=== PATIENT | male | born 1985 | race Caucasian/White ===

== ENCOUNTER 2016-10-04 15:25 | Emergency (ER) | payer SELFPAY ==
--- NOTE | 2016-10-05 12:42 | ER ---
ADMIT: 10/04/2016 RM/LOC: ER [facility] MR#: [id number] [address] [id number] [place] [address] [facility] [address] [place] [address] Emergency Room Report SEX: M AGE: 30 : 1985 DATE: 10/04/2016 CHIEF COMPLAINT: Shortness of breath. HISTORY OF PRESENT ILLNESS: Pleasant 30-year-old white male, who presents to the ER for shortness of breath. The patient states over the past few days, he has had increasing shortness of breath. The patient states it started out as somewhat of an upper respiratory infection with some congestion and cough. Over the last 2 days, he has had increasing fever, chills, and productive cough. Admits to some chest discomfort secondary to the cough. He states he has a history of what he believes to be asthma although he says he has never been formally diagnosed. He has been prescribed albuterol inhalers in the past, but does not currently have one at home. He was seen recently in the [facility], states he was treated for pneumonia. SOCIAL HISTORY: Significant for a pack and half a day of smoking. No known cardiac disease. COURSE IN THE EMERGENCY ROOM: The patient was seen and examined. Vitals BP 134/52, heart rate 100, respirations 28, temp 98.9, and 95% on room air. The patient was initially diaphoretic, had some increased labored breathing. He was given a DuoNeb treatment, which did make him more comfortable. He felt like he was moving better air. Chest x-ray was ordered, negative for any infiltrates. Basic lab shows white count 12.9, hemoglobin 14.4, hematocrit 43.1, and platelets 155. Metabolic panel; sodium 139, potassium 3.8, chloride 102, creatinine 1.2. Otherwise unremarkable. Lactic acid was 1.9. I re- evaluated the patient following his first DuoNeb. He was still somewhat wheezy. I had them repeat DuoNeb as well as give him 60 mg of prednisone p.o. His breathing has improved. He still does have some wheezes bilaterally, however, he is much more comfortable and states he feels better. I also had them give the patient albuterol inhaler with teaching today. IMPRESSION: 1. Bronchitis. 2. Reactive airway disease. 3. Tobacco abuse. ADMIT: 10/04/2016 RM/LOC: ER [facility] MR#: [id number] [address] [id number] [place] [address] [facility] [address] [place] [address] Emergency Room Report SEX: M AGE: 30 : 1985 DISPOSITION: Did discuss with the patient, labs and radiology results. They were not concerning for infection. I provided him a script for prednisone taper starting at 40 mg p.o. daily x2 days, 30 mg p.o. daily x2 days, 20 mg p.o. daily x2 days, and 10 mg p.o. daily x2 days. Also given the albuterol inhaler, told to use 2 puffs every 4-6 hours as needed for shortness of breath. I encouraged him to stop smoking as this is probably not helping with his recurrent complaints of upper respiratory problems. Encouraged him to follow up with Dr. Newell next week to reassess as well as provide some management of his underlying reactive airway disease. The patient can use Tylenol ibuprofen as needed for fevers. Should increase his fluids. Questions sought and answered to best of my ability to the patient's satisfaction. He was discharged to follow up with Dr. Newell later this week. RACHEL Teran / Angel Ellis MD / kady OLIVEROS: 10/04/2016 17:43:09 JOB #: [id number] CC: Anthony Wu MD, Attending Physician UNKNOWN, Family Physician
== END 2016-10-04 18:26 | disposition home or self-care (01) ==
LOC: ER 15:25
DX: J45.909 Unspecified asthma, uncomplicated (principal); F17.210 Nicotine dependence, cigarettes, uncomplicated; Z88.7 Allergy status to serum and vaccine

== ENCOUNTER 2016-11-10 18:21 | Emergency (ER) | payer SELFPAY ==
--- NOTE | 2016-12-03 18:45 | ER ---
ADMIT: 11/10/2016 RM/LOC: ER [facility] MR#: [id number] [facility] [id number] [place], [place] [address] [place] [address] [facility] [address] [place] [address] Emergency Room Report SEX: M AGE: 30 : 1985 DATE: 11/10/2016 ADDENDUM: The patient comes to the ER for diarrhea that he has had for 10 days. He feels tired all the time, but he is able to eat and drink normally. CBC and BMP were normal. Urinalysis was also normal. We did outpatient stool cultures. He is to wait for the results of the stool cultures meanwhile making sure to push fluids. Please see my T-sheet. RACHEL Ramos / Pan De La Fuente MD / kady JOB #: [id number] CC: Pan De La Fuente MD, Attending Physician Juan A Newell MD, Family Physician
== END 2016-11-10 21:01 | disposition home or self-care (01) ==
LOC: ER 18:21
DX: R19.7 Diarrhea, unspecified (principal); Z79.899 Other long term (current) drug therapy; F17.210 Nicotine dependence, cigarettes, uncomplicated; Z88.7 Allergy status to serum and vaccine